=== PATIENT | male | born 1970 | race Caucasian/White ===

== ENCOUNTER 2019-05-02 00:38 | Observation (INO) ==
--- NOTE | 2019-05-02 01:01 | EKG Report ---
Test Performed on : 05/02/2019 01:00:12 AM Test Reason : neck pain Blood Pressure : / mmHG Vent. Rate : 067 BPM Atrial Rate : 067 BPM P-R Int : 136 ms QRS Dur : 112 ms QT Int : 372 ms P-R-T Axes : 050 -08 072 degrees QTc Int : 393 ms Normal sinus rhythm. Possible Left atrial enlargement Incomplete right bundle branch block Nonspecific T wave abnormality Abnormal ECG No previous ECGs available Unconfirmed Result
[2019-05-02 01:03] LABS: EOS# 0.44 X1000 (0.0-0.7); EOS% 4.3 % (0.0-10.0); HEMATOCRIT 43.8 % (42.0-52.0); HEMOGLOBIN 14.8 g/dL (14.0-18.0); IMM GRAN# 0.02 X1000 (0.0-0.04); IMM GRAN% 0.2 % (0.0-0.5); MCH 29.5 PG (27-31); MCHC 33.8 g/dL (33-37); MCV 87.4 FL (81-99); MONO# 0.77 X1000 (0.11-0.59); MONO% 7.5 % (1.7-9.3); MPV 10.8 FL (7.4-10.4); NEUT# 5.89 X1000 (1.4-6.5); PLT 214 X1000 (130-400); RBC 5.01 XMIL (4.7-6.1); RDW 13.3 % (11.5-14.5); WBC 10.32 X1000 (4.8-10.8)
[2019-05-02] MEDS ORDERED: ASPIRIN PO ONE (01:32)
[2019-05-02] MEDS ORDERED: NITROGLYCERIN TOP ONE (01:35)
[2019-05-02 01:44] LABS: AGAP 11; ALBUMIN 4.3 g/dL (3.5-5.0); ALKALINE PHOSPHATASE 110 U/L (32-122); BUN 13 mg/dL (8-22); CALCIUM 9.4 mg/dL (8.8-10.2); CHLORIDE 107 mmol/L (98-107); COSMO 284; CREATININE 0.8 mg/dL (0.7-1.2); ESTIMATED GFR > 60; GLUCOSE 143 mg/dL (70-104); GOT 16 U/L (10-34); GPT 29 U/L (10-44); POTASSIUM 3.6 mmol/L (3.5-5.1); SODIUM 141 mmol/L (136-145); TCO2 23 mmol/L (25-35); TOTAL PROTEIN 6.9 g/dL (6.3-8.3)
--- NOTE | 2019-05-02 01:50 | PROVIDER DOCUMENTATION ---
This chart was entered by [employer] Scribe, acting as scribe for Jorge L Barragan MD. HPI-General Adult - General Chief Complaint: Neck Pain Stated Complaint: NECK PAIN Time Seen by Provider: 05/02/19 00:54 Source: patient Allergies/Adverse Reactions: Patient Allergies Allergy/AdvReac Type Severity Reaction Status Date / Time No Known Allergies Allergy Verified 05/02/19 00:47 Home Medications: Home Medication List Medication Instructions Recorded Confirmed Last Taken Type Cyclobenzaprine [Flexeril] 10 mg PO TID PRN #15 tab 11/24/18 Unknown Rx Ibuprofen [Motrin] 600 mg PO Q6-8H PRN PRN #30 tab 11/24/18 Unknown Rx Prednisone 20 mg PO BID #10 tab 11/24/18 Unknown Rx - History of Present Illness -Gen Adult Nature of Presenting Problems: 48 y/o M presents to the ED c/o non-specific neck pain. Onset earlier today. Patient denies any obvious injury. Patient states he had an FL x9 years and symptoms are exactly the same today. Patient reports he did receive x2 stents at that time in [place] by Dr Thomas. Patient denies any chest pain, shortness of breath and all other symptoms. Patient reports taking x2 81 mg aspirin earlier today. Patient is a 1 ppd smoker. Location of Pain/Injury: reports: neck Quality of Pain: reports: aching Severity: reports: mild (2/10) Onset/Duration: reports: this evening Timing: reports: still present Context/Activities at Onset: reports: none Modifying Factors: improves with: nothing Associated Symptoms: reports: denies symptoms Review of Systems - Adult - REVIEW OF SYSTEMS - ADULT Constitutional: denies: chills, fever Eyes: reports: no symptoms reported Ears, Nose, Mouth & Throat: reports: no symptoms reported Cardiovascular: denies: chest pain Respiratory: denies: cough, shortness of breath Gastrointestinal: denies: abdominal pain, diarrhea, nausea, vomiting Genitourinary: reports: no symptoms reported Musculoskeletal: reports: neck pain Integumentary: denies: itching, rash Neurological: denies: dizziness/vertigo, headache/migraines Psychiatric: reports: no symptoms reported Endocrine: reports: no symptoms reported Hematologic/Lymphatic: reports: no symptoms reported Allergic/Immunologic: reports: no symptoms reported All Other Systems: Reviewed and Negative Past History - Adult - PAST MEDICAL HISTORY-ADULT Review of Records: reports: Nursing Assessment Review, Medications Reviewed Major Childhood Illnesses: reports: denies history Cardiovascular: reports: HTN, hyperlipidemia, FL Respiratory: reports: denies history Gastrointestinal: reports: denies history Obstetrical/Gynecological: reports: denies history Genitourinary: reports: denies history Musculoskeletal: reports: denies history Neurological: reports: denies history Endocrine/Immune: reports: denies history Other Conditions: reports: denies history - PRIOR SURGERIES/PROCEDURES Surgical/Procedure History: reports: cardiac stent (x2), orthopedic (extremity) - IMMUNIZATION STATUS Childhood Immunizations: See Nurse Assessment Flu Vaccine: See Nurse Assessment - SOCIAL HISTORY Smoking: cigarettes, greater than 1 pack/day Provider spent 3-5 mins advising pt. on dangers of tobacco.: Discussed manners to quit use, and f/u contacts for add'l counseling. Substance Use: none/never Physical Exam-General - PHYSICAL EXAM-ADULT Initial Vital Signs Reviewed: Yes - CONSTITUTIONAL General Appearance: alert, no apparent distress - HEAD, EARS, NOSE, MOUTH & THROAT HENMT: moist mucous membranes, normal ENT inspection - NECK Neck: full range of motion, other (mild frontal tenderness) - RESPIRATORY Respiratory: lungs clear, normal breath sounds, no respiratory distress, no accessory muscle use - CARDIOVASCULAR Cardiovascular: normal peripheral pulses, regular rate, rhythm - GASTROINTESTINAL (ABDOMEN) Abdominal Exam: non tender, soft - MUSCULOSKELETAL Extremity: non-tender, normal inspection - SKIN Integumentary: normal color, warm/dry - PSYCHIATRIC Psych/Mental Status: normal mood/affect, oriented x 3 Progress - PLAN OF CARE/RESULTS Progress/Plan/Lab Results: Vital Signs - 8 hr 05/02/19 00:43 Temperature 98.1 F Pulse Rate 64 Respiratory Rate 18 Blood Pressure 162/89 O2 Sat by Pulse Oximetry 96 Orders Category Date Time Status EKG [EKG] Stat Ther 05/02/19 00:47 Draft Result Diagrams: 05/02/19 01:50 CAN STACKER 05/02/19 01:50 CAN STACKER - EKG 1 Time of EKG reading by physician:: 01:02 EKG Read and Signed by:: Jorge L Barragan Rate: 67 Rhythm: normal sinus rhythm QRS: RBB ST Wave: non-specific ST changes Departure - Departure Date of Disposition Decision: 11/03/19 Time of Disposition Decision: 01:59 DIAGNOSIS: Atypical chest pain CAD (coronary artery disease) Qualifiers: Coronary Disease-Associated Artery/Lesion type: unspecified vessel or lesion type [place] vs. transplanted heart: [place] heart Associated angina: without angina Qualified Code(s): I25.10 - Atherosclerotic heart disease of [place] coronary artery without angina pectoris Disposition: ADMITTED INPATIENT 09 Certified Medical Emergency: Emergent Condition: Stable Referrals and Follow-Ups: Ena Cabezas [Primary Care Provider] - - Critical Care Note This patient required my direct & personal management of CC.: No Attestation - Physician/ RIMA Attestation Patient care was provided by Advanced Practice Provider:: No The physician spent face to face time with patient:: Yes Advanced Practice Provider documentation review:: Supervising physician onsite and consulted in the evaluation and care of this patient. The physician did have a face to face encounter with the patient. - HEART Score HEART Score: History: Moderately Suspicious HEART Score: ECG: Non-Specific Repolarization Disturbance/LBBB/PM HEART Score: Age: 45-65 Years HEART Score: Risk Factors for Atherosclerotic Disease: > or = 3 Risk Factors or History of Atherosclerotic Disease This chart was documented by the indicated scribe, ([employer] Scribe) and accurately reflects the services I performed and decisions made by me, Jorge L Barragan MD, as attested by the provider's signature.
[2019-05-02] MEDS ORDERED: ZOFRAN IV PRN (02:08)
[2019-05-02] MEDS: MORPHINE IV PRN ×4 (06:18→21:04)
[2019-05-02] MEDS ORDERED: SODIUM CHLORIDE 0.9% INJ ONE (08:34)
[2019-05-02] MEDS ORDERED: PROTONIX IV ONE (08:34)
[2019-05-02] MEDS ORDERED: TADALAFIL 5 MG PO PRN (08:35)
[2019-05-02] MEDS ORDERED: EFFEXOR XR PO SCH (09:00)
[2019-05-02] MEDS: G.I. COCKTAIL PO ONE ×2 (09:30→10:37)
[2019-05-02] MEDS: ASPIRIN PO SCH (10:00)
--- NOTE | 2019-05-02 10:36 | HISTORY AND PHYSICAL ---
PRIMARY CARE PROVIDER: Dr. Ena Cabezas. REGULATORY ADMINISTRATOR: Dr. Thomas. CHIEF COMPLAINT: Throat pain. HISTORY OF PRESENT ILLNESS: Mr. Wilcox is a 48-year-old male with a past medical history of coronary artery disease status post ND and 2 stents 10 years ago, hyperlipidemia, arthritis to bilateral shoulders and back, probable BPH and GERD. He reports his last stress test was 2 years ago. He had a carotid done 3 months ago. He came to the ED complaining of neck pain that happened yesterday morning at work, again that afternoon and then around 2300 last night the pain became intense, so he decided to come to the ED since this was like his previous ND pain. There was some associated nausea this a.m. when the pain was super intense. He got clammy. There was no shortness of breath. No dizziness. No palpitations. He states exertion might make it worse, but nothing really makes it better. It lasts seconds to minutes. Upon initial examination, he stated that the pain was coming back in his bilateral throat and when it was at its most intense, it was going into his tongue. He was massaging his throat area. His tongue was not swelling and I did not appreciate any swollen lymph nodes. We will check another stat troponin. We will go ahead and consult Cardiology. Do an EKG. Make him n.p.o. after midnight. Will await cardiology's recommendation for stress test versus left heart catheterization tomorrow. He denies being around any sick contacts. No cough. No congestion. No fever. No chills. He does report that he has been having issues with his stomach with severe cramping. He almost passed at work 1 day last week. He does have GERD. He reports he has not been belching, although he was actively belching while I was in the room. The only difference in this chest pain is that when it started in his neck, it went to bilateral elbows as well as into his chest. He states the pain has not radiated to his arms, but he thought he might have felt some mild chest pain around 5 a.m. this morning when the pain was at its worst. PAST MEDICAL HISTORY: 1. Coronary artery disease status post ND and 2 stents. 2. Hyperlipidemia. 3. Arthritis in bilateral shoulders and back. 4. Probable BPH, some issues with flow. 5. Gastroesophageal reflux disease. PAST SURGICAL HISTORY: 1. Two 2 stents. 2. Right shoulder surgery x2. FAMILY HISTORY: Mother with ND last week at the age of 67, as well as diabetes. No cancer. SOCIAL HISTORY: He is . He has a stepdaughter. 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 He does smoke about a pack per day. Before this, he was smoking 3 packs a day, then he started vaping and he was able to cut back to a pack a day. We did go over the perils of smoking and heart disease as well as the means to quit. Rare alcohol on occasions. No marijuana or illicit drug use. REVIEW OF SYSTEMS: A 12-point review of systems completely negative except for those mentioned in HPI. PHYSICAL EXAMINATION: VITAL SIGNS: Temperature is 97.9 degrees, heart rate 65, respirations 16, blood pressure 134/70, O2 is 99% on room air. GENERAL: Mr. Wilcox is a 48-year-old male who is sitting up in the bed actively massaging his throat in no acute distress. HEENT: Atraumatic, normocephalic. PERRL. NECK: Supple. Trachea midline. CARDIOVASCULAR: S1, S2 appreciated. No murmurs, gallops, rubs noted. Bilateral pedal pulses are bounding. Did not note any carotid bruits. No JVD. RESPIRATORY: Lung sounds clear bilaterally. ABDOMEN: Soft, nontender, nondistended. Positive bowel sounds 4 quadrants. EXTREMITIES: Moves all extremities well. NEUROLOGIC: No focal deficits noted. DIAGNOSTIC DATA: Pending chest x-ray. First EKG normal sinus rhythm with possible left atrial enlargement, incomplete right bundle branch block, nonspecific T-wave abnormality, 67 beats per minute. Second EKG was obtained and reviewed by Dr. Jernigan. I do not have those immediate results right now. LABORATORY DATA: White count 10, hemoglobin and hematocrit 14 and 43, platelet count is 214,000. Sodium 141, potassium 3.6, BUN 13, creatinine 0.8 blood glucose is 143. Three sets of cardiac enzymes have been completely negative. ASSESSMENT AND PLAN: 1. Chest pain in a patient with known coronary artery disease status post myocardial infarction and stenting. He has had 3 sets of negative cardiac enzymes and reports that this neck pain is like his previous myocardial infarction. We will consult Cardiology. Make him n.p.o. after midnight, possibly set up for a stress test or left heart catheterization in the a.m. depending on Cardiology's preference. He reports he is still intermittently having this pain in his throat. We will rule out strep as well as give him a GI cocktail and IV proton pump inhibitor and continue on proton pump inhibitors as he has been having some abdominal issues. We will continue his home dose of aspirin as well as his statin. Check a lipid profile and hemoglobin A1c in the a.m. 2. Hyperlipidemia. Continue statin. Check lipid profile. 3. Arthritis. Continue home medications. 4. Gastroesophageal reflux disease. We will continue with proton pump inhibitor and GI cocktail. 5. Tobacco use and abuse as well as vaping. We did discuss smoking cessation as well as the means to quit. 6. Further recommendations to follow physician evaluation, laboratory and diagnostic data. Dictated by KIRT Coles for Dax Jernigan MD cc: MD Ena Muhammad MD Alejandro Vasquez
--- NOTE | 2019-05-02 10:41 | EKG Report ---
Test Performed on : 05/02/2019 07:22:30 AM Test Reason : FU chest pain Blood Pressure : / mmHG Vent. Rate : 064 BPM Atrial Rate : 064 BPM P-R Int : 134 ms QRS Dur : 094 ms QT Int : 400 ms P-R-T Axes : 046 000 064 degrees QTc Int : 412 ms Normal sinus rhythm. Incomplete right bundle branch block Nonspecific T wave abnormality Abnormal ECG When compared with ECG of 02-MAY-2019 01:00, (Unconfirmed) No significant change was found Unconfirmed Result
[2019-05-02] MEDS: CRESTOR PO SCH ×3 (11:07→21:47)
--- NOTE | 2019-05-02 11:59 | Diag Imaging Result Doc PS360 ---
EXAM: CHEST-PORTABLE 05/02/2019 HISTORY: CP TECHNIQUE: AP portable erect at 1141 COMMENT: The heart size and pulmonary vascularity are within normal limits and the lungs are clear. There are no previous studies. IMPRESSION: No acute disease. Electronically signed by Rayo Zambrano 05/02/2019 11:56 AM
[2019-05-02] MEDS: NORVASC PO SCH (16:40)
[2019-05-02] MEDS: LOPRESSOR PO SCH ×2 (16:45→20:35)
--- NOTE | 2019-05-02 16:47 | HISTORY AND PHYSICAL ---
ADDENDUM: Patient seen and examined by myself. Full note dictated and discussed with nurse practitioner. Patient notes that he had shortness of breath, some chest tightness, and neck pain anteriorly just below his jaw for the past 2 or 3 days. States this is very similar if not the same type of pain he had in 2009 prior to having an MS with 2 stents. Notes he has cut down to approximately a pack a day of cigarettes. He was smoking 3 packs a day until just recently. He still takes a baby aspirin as well as cholesterol medication. Currently, he is awake and alert. He is in no distress. Did discuss with patient the importance of stopping smoking. Discussed the reasons that smoke causes poor wound healing as well as poor blood flow which increases his opportunity to have another heart attack. Discussed that although vaping certainly may be better from a pulmonary standpoint, but nicotine is nicotine and does not matter whether it is vaped, chewed, smoked, inhaled, or patched. Discussed the importance of stopping nicotine as well as of course stopping vaping. We will continue to rule out MS. We will consult Cardiology. This patient most likely will require further intervention to prove that although the symptoms are normal this is or is not coronary related. cc: Dax Jernigan MD
--- NOTE | 2019-05-02 18:27 | CARDIOLOGY CONSULTATION ---
DATE: 05/02/2019 CONSULTATION REQUESTED BY: Hospitalist service. REASON FOR CONSULT: Chest pain. HISTORY: Mr. Wilcox is a 48-year-old male who is known to have coronary heart disease. He states that yesterday when he was at work he started noticing some discomfort in the left anterior neck next to the left jaw. It was short lasting, a few seconds, intermittent, unrelated to exercise. Over the course of the ensuing hours, this continued to increase and involved the entire anterior neck. It was lasting a little longer, up to 2 to 3 minutes at a time. He got worried because that is how his previous myocardial infarction started. After admission, they have done a total of 4 troponin levels, all of them negative. His chest x-ray reported as showing no acute disease. EKG showed no acute ischemic changes. There is a pattern consistent with an old posterior MT. The patient at this time is feeling better. PAST HISTORY: Positive for myocardial infarction in 2009. At that time, he was taken to [facility]. They found a total occlusion of the circumflex which was successfully stented. He has had a follow-up nuclear stress test by Dr. Wharton and Dr. Cabezas in 2017 that showed diagnostic scar of inferior wall and inferolateral wall with ejection fraction of 46%. No ischemia was noted. The patient has not been diagnosed with diabetes or hypertension. SURGICAL HISTORY: He has had 2 shoulder surgeries in the past. He has had also some sciatic pain on the left side, some back pains. SOCIAL HISTORY: He is to his x19 years. He has 1 stepchild. 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 He used to smoke 3 packs a day, now he is down to 1 pack a day. However, he also vapes. He does not drink alcohol. FAMILY HISTORY: Mother has had a heart attack recently. REVIEW OF SYSTEMS: According to his , he snores and does not seem to rest well at night. He has been diagnosed with depression. He has gained 100 pounds since he his 19 years ago.He has depression. He has aches and pains. However, he has not slowed down very much lately. He says that on Friday, the day prior to the onset of symptoms, he did more physical work that he normally does. HOME MEDICATIONS: At this time include aspirin 81 daily, rosuvastatin 40 mg at bedtime, Cialis as needed, testosterone AndroGel 4 times a day, venlafaxine or Effexor 150 mg at bedtime. PHYSICAL EXAMINATION: Vital signs: Blood pressure is 127/51, temperature 97.6 degrees, pulse 58, respirations 20. General: He is awake, alert, oriented, in no distress. HEENT: Unremarkable. Chest: Sounds clear to auscultation and percussion. Heart: Sounds regular and rhythmic. No gallop or murmur. Abdomen: Obese, nontender. Extremities: Show good pulses. No peripheral edema. Neurologic: Follows commands. Moves 4 extremities. BLOOD WORK: Sodium 141, potassium 3.6, BUN 13, creatinine 0.8. Hemoglobin 14.8, hematocrit 43.8. IMPRESSION: 1.Patient who presents with chest pain, atypical. He says that this is reminiscent of prior myocardial infarction. However, it really has not lasted that long. His troponins all are negative. His EKG is consistent with an old inferior lateral scar. 2. Severe coronary artery disease: prior acute inferolateral myocardial infarction 2010 s/p stent to Circumflex. 3. Tobacco user. 4. Obesity, body mass index 33.1. 5. Suspected sleep apnea syndrome. 6. Hyperlipidemia. RECOMMENDATION: At this time, we will arrange for a Lexiscan stress MPI study. We will put him on small doses of amlodipine and beta phillip. If the stress test suggests ischemia, we will send him to [place] for heart catheterization. Otherwise, he will be treated medically and he will follow up with his established physicians. His filler sifter machine of record I believe is Dr. Hansen and his primary doctor is Dr. Ena Cabezas in [place]. cc: Nicholas Baker MD [facility]
--- NOTE | 2019-05-02 18:49 | ECHO REPORT ---
ORDER DATE: 05/02/2019 INTERPRETING PHYSICIAN: Dr. Baker REQUESTING PHYSICIAN: Hospitalist service. CLINICAL INDICATIONS: Patient with chest pain. Prior inferolateral infarct. M-MODE MEASUREMENTS: Left ventricle end diastole: 4.1 cm. Left ventricle end systole: 3.4 cm. Posterior wall: Appears to be 1.0 cm. Interventricular septum: 1.1 cm. Left atrium: 4.2 cm. Aortic root: 3.7 cm. Right ventricle: 3.6 cm. SUMMARY OF 2-DIMENSIONAL IMAGIN. The left ventricular chamber is generous in size. The left ventricular systolic function appears to be generally well preserved. Ejection fraction is estimated at 55% to 60%. There is focal akinesis of the basal to mid inferolateral wall of the left ventricle. The remaining morris showed excellent contractility. 2. The right ventricle appears to be generous in size. The atria appear to be normal. There is no pericardial effusion. The inferior vena cava is not dilated. 3. The mitral valve looks normal. Color flow mapping unremarkable. 4. Pulsed wave Doppler of mitral inflow shows normal E/A ratio. 5. Tissue Doppler of septal and lateral mitral annulus averages 10 cm. There is no diastolic dysfunction. 6. The aortic valve has three cusps. They open normally. Color flow mapping unremarkable. 7. Pulmonic valve looks normal. Color flow mapping unremarkable. 8. Tricuspid valve looks normal. Color flow mapping unremarkable. 9. Pulmonary systolic pressure appears to be within normal range. 10.There is no evidence of mass or thrombus. Clinical correlation is recommended. cc: Nicholas Baker MD
[2019-05-02] MEDS: PEPCID PO SCH (20:35)
[2019-05-02] MEDS: EFFEXOR XR PO SCH (21:04)
--- NOTE | 2019-05-03 06:15 | EKG Report ---
Test Performed on : 05/03/2019 06:44:28 AM Test Reason : chest pain Blood Pressure : / mmHG Vent. Rate : 063 BPM Atrial Rate : 063 BPM P-R Int : 136 ms QRS Dur : 100 ms QT Int : 424 ms P-R-T Axes : 057 -01 079 degrees QTc Int : 433 ms Normal sinus rhythm. Incomplete right bundle branch block Nonspecific ST and T wave abnormality Abnormal ECG When compared with ECG of 02-MAY-2019 10:41, (Unconfirmed) QRS axis shifted right Criteria for Inferior infarct are no longer present Non-specific change in ST segment in Inferior leads Nonspecific T wave abnormality has replaced inverted T waves in Lateral leads Unconfirmed Result
[2019-05-03 06:41] LABS: HEMOGLOBIN A1C 5.7 % (4.8-6.0)
[2019-05-03 06:47] LABS: CHOLESTEROL 143 mg/dL (0-200); HDL 37 mg/dL (35-55); LDL 65 mg/dL; TRIGLYCERIDES 203 mg/dL (39-160); VLDL 41 mg/dL
[2019-05-03] MEDS: EFFEXOR XR PO SCH ×2 (09:12→21:56)
[2019-05-03] MEDS: PEPCID PO SCH ×3 (09:12→21:47)
[2019-05-03] MEDS: LOPRESSOR PO SCH ×3 (09:12→21:47)
[2019-05-03] MEDS: ASPIRIN PO SCH (09:12)
[2019-05-03] MEDS: CRESTOR PO SCH ×2 (09:12→21:55)
[2019-05-03] MEDS: NORVASC PO SCH (09:12)
--- NOTE | 2019-05-03 11:36 | GRADED EXERCISE REPORT ---
DATE: 05/02/2019 STUDY PERFORMED: Walking Lexiscan administration EKG interpretation. INDICATION: I believe chest pain. ORDERING PHYSICIAN: This was ordered per Dr. Baker. FINDINGS: The patient's baseline EKG really was unremarkable. However, he did develop neck and throat tightness, not clearly chest pain. Heart rate went up to 123. His baseline blood pressure was 133/88, peak of 140/90. He did develop ST depressions at about 2 minutes, in V2 and V3, not clearly a millimeter depression but definitely his T-waves flipped in V2 and V3, V4, 5, and 6, which I would say may be nonspecific but I would say is electrically positive. The patient tolerated the procedure without difficulty. Neck and throat tightness stable. The test was felt to be clinically negative but electrically positive. Myocardial perfusion reported separately. cc: Ramiro Gaviria MD
[2019-05-03] MEDS: MORPHINE IV PRN ×2 (12:57→21:56)
[2019-05-03] MEDS ORDERED: LEXISCAN ONE (14:42)
--- NOTE | 2019-05-03 18:09 | Diag Imaging Result Document ---
PROCEDURE NAME: MYOCARDIAL PERF SCAN, STR/REST - 05/02/2019 STUDY: Same-day rest/stress walking Lexiscan myocardial perfusion study. INDICATION: Patient with a history of previous myocardial infarction in 2010, occlusion of circumflex, atriomegaly. However, he has gained weight. He is a smoker. He presented with recurrent chest pain, suspected unstable angina. DESCRIPTION: The patient came into the nuclear lab and received a rest injection of technetium 99 sestamibi 14.7 mCi. Multiple tomographic views of the cardiac structures were obtained at rest. Subsequently, the patient underwent a walking Lexiscan protocol, and 0.4 mg of Lexiscan were infused. At peak infusion, he was injected with technetium 99 sestamibi 44.6 mCi. Multiple tomographic views of the cardiac structures were obtained following the completion of the protocol. SUMMARY OF THE ELECTROCARDIOGRAPHIC PORTION OF THE STUDY: Dr. Gaviria has already reported the ECG portion of the test. SUMMARY OF THE MYOCARDIAL PERFUSION PORTION OF THE STUDY: Poststress tomographic views of the left ventricle showed a moderately severe, moderately extensive basal to mid lateral wall defect. The rest images showed that there is a trivial degree of reversibility in the medial aspect of the defect. The polar plots revealed the same. There is scintigraphic evidence of a basal to mid lateral wall scar of moderate severity with very trivial periscar ischemia in the most medial aspect of the scar. The gated SPECT on the rest images showed ejection fraction of 74%. Poststress is 67%. The same thing is noted using the Myometrix protocol. The resting ejection fraction is 73% and the poststress is 64%. The lung/heart ratio is normal at 0.39. TID is abnormal at 1.22. SUMMARY: This study shows: 1. Abnormal poststress myocardial perfusion scan. There is scintigraphic suggestion of a moderate sized, moderately severe lateral wall scar with a periscar ischemia of mild degree. 2. Globally preserved ejection fraction at 67% on the [employer] images and 64 % with myometrix protocol on the poststress images. ( ejection fraction drops from rest to stress on both modalities, which may suggest more extensive ischemia). There is a trivial wall motion abnormality in the basal lateral wall. This study suggests increased risk for ischemic events. Clinical correlation is recommended. cc: Nicholas Baker MD [facility]
--- NOTE | 2019-05-04 01:47 | PROGRESS NOTE ---
DATE: 05/03/2019 SUBJECTIVE: The patient notes that somewhere over the last 6 or 8 hours his throat pain resolved. Denies any fevers, chills, cough, or congestion. OBJECTIVE: Vital Signs: Reviewed. Temperature is 98 degrees, pulse 66, respiratory rate 18, blood pressure 144/71. General: The patient is pleasant, currently in no respiratory distress. HEENT: Normocephalic. Neck: Supple. Cardiovascular: Regular rate. No murmurs. Chest: Clear and nonlabored. Extremities: Moves all extremities. ASSESSMENT: 1. Chest pain in a patient with known coronary history with a chest pain similar to his previous. 2. Hyperlipidemia. 3. BPH. PLAN: We are not going to change any of his home medications currently. We did restart Toprol per the insistence of Dr. Baker. We certainly hope that Toprol is not the cause or at least not contributing to his dizziness. cc: Dax Jernigan MD
[2019-05-04] MEDS: LOPRESSOR PO SCH (09:08)
[2019-05-04] MEDS: ASPIRIN PO SCH (09:08)
[2019-05-04] MEDS: PEPCID PO SCH (09:08)
[2019-05-04] MEDS: NORVASC PO SCH (09:08)
[2019-05-04] MEDS: EFFEXOR XR PO SCH (10:21)
[2019-05-04] MEDS: CRESTOR PO SCH (10:21)
[2019-05-04 11:57] VITALS: BP 140/75
== END 2019-05-04 14:13 | disposition home or self-care (01) ==
LOC: P.ED 00:38 → P.MEDSURG 00:38 → SUATTDRO 02:38
PROVIDERS: ATTEND Internal Medicine